=== PATIENT | male | born 1935 | race Caucasian/White ===

== ENCOUNTER 2021-08-16 20:44 | Inpatient (IN) | payer OTHER, SELFPAY ==
[~2021-08-16] VITALS: Ht 182.9 cm; Wt 81.6 kg
[2021-08-16 20:44] VITALS: BP_SYST 129
--- NOTE | 2021-08-16 20:45 | NUR ---
Placed in room 6 . Placed on cafeteria monitor, blood pressure machine and pulse oximeter. To gown for exam. Side rails up.
--- NOTE | 2021-08-16 20:46 | NUR ---
Dr. Camp at bedside for MSE.
--- NOTE | 2021-08-16 20:50 | NUR ---
# 20 gauge angiocath placed to LAC BY EMS. Use of asceptic technique. Opsite placed over site. Blood return noted. Blood for lab drawn from site. Flushed with 10 cc of normal saline. No evidence of infiltration noted. Patient tolerated well.
--- NOTE | 2021-08-16 20:57 | NUR ---
PT BIB ALS FROM [facility] C/O ALOC AND LOW SPO2 82% RA. PT A/O X1 AND HAS A HX OF DEMENTIA. PT ARRIVED TO ER WITH NRB AND SPO2 97%. PT IS 89%-90% ON RA IN ER. NO INCREASED WOB NOTED, NO SOB, NO DIAPHORESIS NOTED, NO CP.
--- NOTE | 2021-08-16 21:23 | NUR ---
EKG performed at BS by BEATRIZ LARRY. Physician given copy of EKG for review.
[2021-08-16 21:35] LABS: BASOPHILS # (AUTO) 0.1 K/uL (0.0-0.2); BASOPHILS % (AUTO) 0.8 % (0.0-2.0); EOSINOPHILS # (AUTO) 0.1 K/uL (0.0-0.4); EOSINOPHILS % (AUTO) 1.3 % (0.0-4.0); HEMATOCRIT 42.6 % (36-54); HEMOGLOBIN 14.1 g/dL (14.0-18.0); LYMPHOCYTES # (AUTO) 1.7 K/uL (1.0-5.5); LYMPHOCYTES % (AUTO) 22.4 % (20.5-51.5); MEAN CORPUSCULAR HEMOGLOBIN 32 pg (27-31); MEAN CORPUSCULAR HGB CONC 33 % (32-36); MEAN CORPUSCULAR VOLUME 98 fL (79.0-98.0); MONOCYTES # (AUTO) 0.7 K/uL (0.0-1.0); MONOCYTES % (AUTO) 9.5 % (1.7-9.3); PLATELET COUNT (AUTO) 248 K/uL (130-430); RED BLOOD CELL COUNT(AUTO) 4.35 MIL/uL (4.2-6.2); RED CELL DISTRIBUTION WIDTH 13.6 % (9.0-15.0); WHITE BLOOD COUNT (AUTO) 7.5 K/uL (4.8-10.8)
[2021-08-16] MEDS ORDERED: FINA1TAB17 PO (21:52)
[2021-08-16] MEDS ORDERED: ROSU10TA2 PO (21:52)
[2021-08-16] MEDS ORDERED: OMEG1CAP75 PO (21:52)
[2021-08-16] MEDS ORDERED: MELA10CA PO (21:52)
[2021-08-16] MEDS ORDERED: ACET1TAB23 PO (21:52)
[2021-08-16] MEDS ORDERED: KETO200T59 TP (21:52)
[2021-08-16] MEDS ORDERED: ACET-73 PO (21:52)
[2021-08-16] MEDS ORDERED: METO25TA3 PO (21:52)
[2021-08-16] MEDS ORDERED: MULT-1198 PO (21:52)
[2021-08-16] MEDS ORDERED: CLOP75TA32 PO (21:52)
[2021-08-16] MEDS ORDERED: NITR0.4T47 SL (21:52)
[2021-08-16] MEDS ORDERED: CHOL400T12 PO (21:52)
--- NOTE | 2021-08-16 21:52 | NUR ---
Medication reconciliation completed with information provided by FACILITY MED LIST. Any prior medication reconciliation on file was reviewed and corrected.
--- NOTE | 2021-08-16 21:52 | NUR ---
Patient's code status is DNR- COMFORT FOCUSED paperwork completed and placed in chart.
[2021-08-16 21:55] LABS: ANION GAP 6 (5-15); CALCIUM 9.4 mg/dL (8.4-11.0); CHLORIDE 106 mmol/L (98-107); CREATININE 1.24 mg/dL (0.55-1.30); GLUCOSE 106 mg/dL (70-99); POTASSIUM 4.1 mmol/L (3.5-5.1); SODIUM SERUM 143 mmol/L (136-145); UREA NITROGEN, BLOOD 21 mg/dL (8-21)
[2021-08-16 21:59] LABS: C-REACTIVE PROTEIN QUANT < 0.2 mg/dL (0-0.5)
[2021-08-16 22:00] LABS: ALANINE AMINOTRANSFERASE 40 U/L (12-78); ALBUMIN 3.8 g/dL (3.4-4.8); ASPARTATE AMINOTRANSFERASE 25 U/L (10-37); LACTATE DEHYDROGENASE 154 U/L (85-227); TOTAL BILIRUBIN 0.3 mg/dL (0.0-1.0)
[2021-08-16] MEDS: MELATONIN 5 MG TABLET PO SCH (22:00)
[2021-08-16] MEDS: AZITHROMYCIN 500 MG in NS 250 ML IV SCH (22:00)
--- NOTE | 2021-08-16 22:00 | NUR ---
PT ATTEMPTED TO GET OUT OF BED, REMOVED GOWN, PIV INTACT AND BLEEDING CONTROLLED. PT REDIRECTED BACK TO BED.
--- NOTE | 2021-08-16 22:05 | NUR ---
Dr. Ramirez at bedside
[2021-08-16] MEDS ORDERED: cefTRIAXone 1 GM in D5W 50 ML IV ONE (22:15)
[2021-08-16] MEDS ORDERED: AZITHROMYCIN 500 MG in NS 250 ML IV ONE (22:15)
[2021-08-16] MEDS ORDERED: DEXAMETHASONE SOD PHOSPHATE 4 MG/ML VIAL IVP ONE (22:15)
--- NOTE | 2021-08-16 22:22 | NUR ---
# 20 gauge angiocath placed to RFA. Use of asceptic technique. Opsite placed over site. Blood return noted. Flushed with 10 cc of normal saline. No evidence of infiltration noted. Patient tolerated well.
[2021-08-16] MEDS ORDERED: AZITHROMYCIN 500 MG/VIAL (ZITHROMAX) IV ONE (22:29)
[2021-08-16] MEDS ORDERED: cefTRIAXone 1 GM VIAL ONE (22:31)
[2021-08-16 22:36] LABS: PROTHROMBIN TIME 10.3 SECS (9.5-12.5)
--- NOTE | 2021-08-16 22:56 | NUR ---
Pt attempted to get out of bed, removed monitoring lines, O2 mask. Redirected back to bed.
[2021-08-16] MEDS ORDERED: LORazepam 2 MG/ML VIAL IVP ONE (23:15)
[2021-08-16] MEDS ORDERED: LORazepam 2 MG/ML VIAL ONE (23:18)
[2021-08-17] MEDS ORDERED: IOHEXOL 350 mgI/mL, 150 ML INFUS..BTL IV ONE (00:01)
--- NOTE | 2021-08-17 00:13 | NUR ---
Pt SARAH to CT with tech and EMT
[2021-08-17] MEDS ORDERED: HALOPERIDOL LACTATE 5 MG/ML VIAL IM ONE (00:30)
--- NOTE | 2021-08-17 00:30 | NUR ---
Per carpet cleaning technician, pt continues to try to get out of bed and off the CT machine. Pt continues to try to remove oxygen mask and equipment.
--- NOTE | 2021-08-17 00:50 | NUR ---
Pt back from CT
--- NOTE | 2021-08-17 01:16 | NUR ---
Pt attempting to get out of bed again and remove lines/equipment. Pt in bilateral wrist restraints and redirected.
--- NOTE | 2021-08-17 01:19 | NUR ---
Per Dr. Ramirez- continue to wait for patient to urinate. No straight cath needed at this time.
--- NOTE | 2021-08-17 02:10 | NUR ---
Patient will be admitted to care of DR. GRAVES. Admitted to TELEMTRY unit. Will go to room 123B. Belongings list completed. Complete and up to date summary report printed. SBAR report to be given at bedside with opportunity for questions.
[2021-08-17] MEDS: D5NS 1,000 ML IV SCH ×3 (02:15→18:17)
[2021-08-17] MEDS ORDERED: LORazepam 2 MG/ML VIAL ONE (02:42)
[2021-08-17] MEDS ORDERED: LORazepam 2 MG/ML VIAL IVP ONE (03:00)
[2021-08-17 03:15] LABS: BILIRUBIN,URINE NEGATIVE (NEGATIVE); BLOOD, URINE NEGATIVE (NEGATIVE); CLARITY/URINE CLEAR (CLEAR); COLOR,URINE YELLOW (YELLOW); GLUCOSE,URINE NEGATIVE (NEGATIVE); KETONES,URINE NEGATIVE (NEGATIVE); LEUKOCYTE ESTERASE ,URINE NEGATIVE (NEGATIVE); NITRITE, URINE NEGATIVE (NEGATIVE); PROTEIN URINE NEGATIVE (NEGATIVE); UROBILINOGEN,URINE 0.2 (0.2-1.0)
--- NOTE | 2021-08-17 04:30 | NUR ---
Transfer to [facility] via ACLS protocol. Licensed nurse present. IV present no signs or symptoms of infiltration.
--- NOTE | 2021-08-17 04:55 | NUR ---
ADMISSION NOTE Received patient from ER via gurney. Patient admitted with diagnosis of resp failure. Patient is confused, lethargic, arousable via sternal rub, A/Ox0. Pt on restraints d/t safety precautions. Placed on 2L nc, sats 94-98%. IVFs intitiated, PIV dressing c/d/i. Airborne isolation precautions initiated for r/o COVID. Personal belongings checked and Belongings List documented. Call light within reach. Safety precautions initiated. JUAN SZYMANSKI.
[2021-08-17 05:31] VITALS: BP_SYST 127
[2021-08-17] MEDS: LevALBUTEROL HCL 1.25 MG/0.5 ML *CONC.* VIAL.NEB (XOPENEX CONC.) INH SCH ×3 (07:00→20:11)
[2021-08-17 08:00] VITALS: BP_SYST 156
--- NOTE | 2021-08-17 08:00 | NUR ---
Received pt from night nurse, pt has bilateral wrist restrain. pt confused, unable to answer any questions, unable to verbalize his name.
--- NOTE | 2021-08-17 08:54 | NUR ---
PT ABLE TO GET OFF HIS BILAT WRIST RESTRAINT AND GET OUT OF BED, PT IS VERY CONFUSED, UNABLE TO ANSWER QUESTIONS. PT SEEN AMBULATING IN THE ROOM. ASSISTED PT TO CHAIR. Addendum: 08/17/21 at 1231 by Walt Nolan RN MD ALSO PULLED OUT HIS IV ACCESS.
[2021-08-17 11:27] VITALS: BP_SYST 150
--- NOTE | 2021-08-17 11:50 | NUR ---
dr campoverde was here and seen pt.
--- NOTE | 2021-08-17 12:07 | NUR ---
dr tamayo ordered to atilio pagan.
--- NOTE | 2021-08-17 12:29 | NUR ---
DR GRAVES WAS HERE, SEEN PATIENT TRYING TO GET OUT OF THE BED AND PT TOOK OFF HIS OXYGEN. MD ORDERED TO PLACE BACK PT ON RESTRAINT.
[2021-08-17] MEDS ORDERED: ACETAMINOPHEN/CODEINE 300 MG-30 MG TABLET PO PRN (12:30)
[2021-08-17] MEDS ORDERED: NALOXONE HCL 0.4 MG/ML AMP (NARCAN) IVP PRN (12:30)
[2021-08-17] MEDS ORDERED: NITROGLYCERIN 0.4 MG TAB.SUBL SL PRN (12:30)
[2021-08-17] MEDS ORDERED: ROSUVASTATIN CALCIUM 5 MG/TAB (CRESTOR) PO SCH (12:30)
[2021-08-17] MEDS ORDERED: ATORVASTATIN 20 MG TABLET PO ONE (13:00)
[2021-08-17] MEDS ORDERED: CLOPIDOGREL BISULFATE 75 MG TABLET PO ONE (13:15)
[2021-08-17] MEDS ORDERED: OLANZapine 2.5 MG TABLET PO ONE (13:15)
--- NOTE | 2021-08-17 14:20 | NUR ---
seen pt trying to get out of bed again, pt is setting on the eob pulling on his restraint. pt assisted back to lay on bed.
[2021-08-17 15:36] VITALS: BP_SYST 124
--- NOTE | 2021-08-17 18:33 | NUR ---
PT CONTINUED TO BE ON BILAT WRIST RESTRAINT ORDERED BY DR GRAVES. PT DAUGHTER MAKENZIE CALLED AND WAS UPDATED WITH PT'S CONDITION WELL [facility] DISABILITY PROGRAM NAVIGATOR INDY HALL. PAPER SHEETER ZENY AWARE OF ORDER FOR SITTER BUT DUE TO COVID-19 PRECAUTION, UNABLE TO PROVIDE SITTER. AWAITING FOR COVID PCR TEST RESULT.
[2021-08-17 20:00] VITALS: BP_SYST 111
[2021-08-17] MEDS ORDERED: cefTRIAXone 1 GM VIAL ONE (21:02)
[2021-08-17] MEDS ORDERED: AZITHROMYCIN 500 MG/VIAL (ZITHROMAX) IV ONE (21:02)
[2021-08-17] MEDS: cefTRIAXone 1 GM in D5W 50 ML IV SCH (22:00)
[2021-08-18] VITALS: BP_SYST 106
[2021-08-18] MEDS: LevALBUTEROL HCL 1.25 MG/0.5 ML *CONC.* VIAL.NEB (XOPENEX CONC.) INH SCH ×4 (01:40→19:00)
--- NOTE | 2021-08-18 05:51 | NUR ---
Outcome Summary A/Ox1, confused, soft restraints in place for pt safety. VSS. Afebrile. Denies pain or discomfort. No c/o cp/sob. Sats >95% on 4L nc. SR with RBBB on tele. Poor appetite, PO intake encouraged. Incontinent, condom catheter in place. Turned q2 for comfort. IVF and IV abx continued, PIV dressing c/d/i. Isolation precautions maintained. POC d/w daughter Laurel. All needs met, safety and comfort measures maintained, call light within reach. NR, RN.
--- NOTE | 2021-08-18 07:01 | NUR ---
PAGED PAGED DR.KADHIUM MOROCHO AT [phone] SPOKE WITH ,
--- NOTE | 2021-08-18 07:32 | NUR ---
INFORMED US ALBERTO THAT THE PATIENT'S 02 SATURATION WAS AT 77% HE WILL INFORM JUAN LANDRUM
[2021-08-18 08:00] VITALS: BP_SYST 128
--- NOTE | 2021-08-18 08:34 | NUR ---
INFORMED RN SALEEMENIS THAT THE PATIENT'S 02 SATURATION IS STILL NOT SHOWING ON THE MONITOR
--- NOTE | 2021-08-18 10:03 | NUR ---
Nutrition Update Tremaine Scale 16 noted. Pt admitted for pneumonia. Diet: mechanical soft BMI: 24.4 kg/m2 RD to follow per nutrition care standards.
[2021-08-18] MEDS: CLOPIDOGREL BISULFATE 75 MG TABLET PO SCH (10:31)
[2021-08-18] MEDS: OLANZapine 2.5 MG TABLET PO SCH (10:31)
[2021-08-18] MEDS: MULTIVITS,CA,MINERALS/IRON/FA 1 TABLET PO SCH (10:31)
[2021-08-18] MEDS: ATORVASTATIN 20 MG TABLET PO SCH (10:31)
[2021-08-18] MEDS: FINASTERIDE 5 MG TABLET (PROSCAR) PO SCH (10:32)
[2021-08-18] MEDS: CHOLECALCIFEROL (VITAMIN D-3) 400 UNIT TABLET PO SCH (10:32)
[2021-08-18] MEDS: OMEGA-3/DHA/EPA/FISH OIL 1 GM CAPSULE PO SCH (10:32)
[2021-08-18] MEDS: METOPROLOL SUCCINATE 25 MG TAB.SR.24H (TOPROL XL) PO SCH (10:38)
[2021-08-18 12:00] VITALS: BP_SYST 134
[2021-08-18] MEDS ORDERED: TAMSULOSIN HCL 0.4 MG CAP PO ONE (15:00)
--- NOTE | 2021-08-18 17:00 | NUR ---
pt has been very confused noncompliance to care has pulled out three iv access even with bilateral restraints on this pt have literally ripped off his wrists restraints bilaterally and was found out of his bed with no clothes on in a state of confusion and the bed alarm sounding out it took two people to redirect the pt back in bed safely and new restraints placed on him and constantly being monitor by this senior writer. nurse supervisor machining was made aware of that and was asked if pt can be a 1:1 with a sitter because of his safety and the physician was also called.
--- NOTE | 2021-08-18 17:59 | NUR ---
INFORMED US ALBERTO THAT THE PATIENT IS OFF THE LEADS ALSO 02 SATURATION HAS NOT BEEN SHOWING
[2021-08-18 18:11] VITALS: BP_SYST 145
[2021-08-18] MEDS: D5NS 1,000 ML IV SCH (18:15)
--- NOTE | 2021-08-18 18:37 | NUR ---
pt's daughter called demanding she wants to come in and sit with her father but due to the pending of his covid-19 test which is still pending did request for dr Salguero to call her at once. This script writer did call the doctor and gave him her personal number [phone]
[2021-08-18 20:00] VITALS: BP_SYST 127
[2021-08-18] MEDS: AZITHROMYCIN 500 MG in NS 250 ML IV SCH (21:00)
[2021-08-18] MEDS: cefTRIAXone 1 GM in D5W 50 ML IV SCH (21:00)
[2021-08-18] MEDS ORDERED: AZITHROMYCIN 500 MG/VIAL (ZITHROMAX) IV ONE (21:24)
[2021-08-18] MEDS ORDERED: cefTRIAXone 1 GM VIAL ONE (21:24)
[2021-08-18] MEDS: MELATONIN 5 MG TABLET PO SCH (23:19)
[2021-08-19] VITALS: BP_SYST 136
--- NOTE | 2021-08-19 06:02 | NUR ---
A/Ox1, bilateral wrist restraints in place d/t continuously pulling lines. Daughter granted access per MD to sit bedside amid pending PCR results d/t pt's mental status. VSS. Afebrile. Denies pain or discomfort. Sats 95% on 5L nc. SR with BBB on tele. Tolerating mechanical soft diet. Incontinent, voiding adequately. IVFs and IV abx continued, PIV dressing c/d/i. All needs met, safety and comfort measures maintained, call light within reach. NR, RN.
[2021-08-19 06:54] LABS: ANION GAP 6 (5-15); CALCIUM 8.6 mg/dL (8.4-11.0); CHLORIDE 107 mmol/L (98-107); CREATININE 0.81 mg/dL (0.55-1.30); GLUCOSE 86 mg/dL (70-99); POTASSIUM 3.5 mmol/L (3.5-5.1); SODIUM SERUM 141 mmol/L (136-145); UREA NITROGEN, BLOOD 13 mg/dL (8-21)
[2021-08-19] MEDS: LevALBUTEROL HCL 1.25 MG/0.5 ML *CONC.* VIAL.NEB (XOPENEX CONC.) INH SCH ×2 (07:00→13:00)
[2021-08-19 07:26] LABS: BASOPHILS % (AUTO) 0.4 % (0.0-2.0); EOSINOPHILS # (AUTO) 0.1 K/uL (0.0-0.4); EOSINOPHILS % (AUTO) 1.5 % (0.0-4.0); HEMATOCRIT 45.1 % (36-54); LYMPHOCYTES # (AUTO) 2.5 K/uL (1.0-5.5); LYMPHOCYTES % (AUTO) 30.5 % (20.5-51.5); MEAN CORPUSCULAR HEMOGLOBIN 32 pg (27-31); MEAN CORPUSCULAR HGB CONC 33 % (32-36); MEAN CORPUSCULAR VOLUME 97 fL (79.0-98.0); MONOCYTES # (AUTO) 0.7 K/uL (0.0-1.0); MONOCYTES % (AUTO) 8.5 % (1.7-9.3); NEUTROPHILS # (AUTO) 4.9 K/uL (1.8-7.7); NEUTROPHILS % (AUTO) 59.1 % (40.0-70.0); PLATELET COUNT (AUTO) 232 K/uL (130-430); RED BLOOD CELL COUNT(AUTO) 4.65 MIL/uL (4.2-6.2); RED CELL DISTRIBUTION WIDTH 13.4 % (9.0-15.0); WHITE BLOOD COUNT (AUTO) 8.3 K/uL (4.8-10.8)
[2021-08-19] MEDS: D5NS 1,000 ML IV SCH ×2 (07:35→15:36)
--- NOTE | 2021-08-19 07:50 | NUR ---
Opening note Patient is resting in bed A&O x2, no complaint of pain or discomfort, restless and woants to be taken off of restraints. no signs or symptoms of respiratory distress. Daughter is at bedside, daughter was educated on risk of being in PUI room, verbalized understanding and is wearing proper PPE. Patient is on restraints. IV is in place and patent. Educated patients agagaubreeer on plan of care, patient verbalized understanding. Price is in lowest position, call light within reach, fall and aspiration precautions are in place. Will continue to monitor Addendum: 08/19/21 at 1230 by Kamala Gomez RN droplet precautions are in place.
[2021-08-19 08:00] VITALS: BP_SYST 128
[2021-08-19] MEDS: OLANZapine 2.5 MG TABLET PO SCH (09:02)
[2021-08-19] MEDS: ATORVASTATIN 20 MG TABLET PO SCH (09:02)
[2021-08-19] MEDS: CHOLECALCIFEROL (VITAMIN D-3) 400 UNIT TABLET PO SCH (09:02)
[2021-08-19] MEDS: METOPROLOL SUCCINATE 25 MG TAB.SR.24H (TOPROL XL) PO SCH (09:05)
[2021-08-19] MEDS: OMEGA-3/DHA/EPA/FISH OIL 1 GM CAPSULE PO SCH (09:06)
[2021-08-19] MEDS: FINASTERIDE 5 MG TABLET (PROSCAR) PO SCH (09:06)
[2021-08-19] MEDS: TAMSULOSIN HCL 0.4 MG CAP PO SCH (09:06)
[2021-08-19] MEDS: CLOPIDOGREL BISULFATE 75 MG TABLET PO SCH (09:06)
[2021-08-19] MEDS: MULTIVITS,CA,MINERALS/IRON/FA 1 TABLET PO SCH (09:06)
--- NOTE | 2021-08-19 11:30 | NUR ---
RN note Patient is in bed, restless. Attempted to calm patient and was successful. Patient does not complain of pain is in stable condition. Will continue to monitor.
[2021-08-19 16:03] VITALS: BP_SYST 112
--- NOTE | 2021-08-19 16:50 | NUR ---
RN note Daughter is back in the room with patient, wearing correct PPE. Patient is significantly calmer with daughter at bedside.
--- NOTE | 2021-08-19 18:41 | NUR ---
Closing note Patient is resting in bed A&O x2, no complaint of pain or discomfort. No signs or symptoms of respiratory distress. Daughter is at bedside. Patient is on restraints. IV is in place and patent. All needs were met. Bed is in lowest position, call light within reach of the daughter , droplet, fall and aspiration precautions are in place. Will endorse report to plant operator/shift supervisor.
[2021-08-19 19:00] VITALS: BP_SYST 114
--- NOTE | 2021-08-19 19:15 | NUR ---
change of shift.pt.presents isolation status;droplet;covid19;pui status.[email or web address] assist w adl's.dtr presents order per to [email or web address] iv access intact.iv fluids infusing.pt.receiving os therapy via nasal cannuale rate:2l/min:o2-sat5=93%.restraints wrist bilateral in place.skin/circulation wnl.call light/telephone placed w/in access of the pt.
[2021-08-19 20:00] VITALS: BP_SYST 114
--- NOTE | 2021-08-19 20:00 | NUR ---
pt.assessed.v/s assessed values wnl.o2-sat%=93%.iv access intact iv fluids infusing.pt.assessed for cleanliness.pt.repositioned. no c/o pain,nausea.call light/telephone placed w/in access of the pt.restraints wrists restraints bilateral in place skin/circulation wnl.
--- NOTE | 2021-08-19 21:00 | NUR ---
2100pmedication melatonin administered.medication crushed mixture apple sauce.pt.capable to ingest the po medication w/out difficulty.
[2021-08-19] MEDS: MELATONIN 5 MG TABLET PO SCH (21:06)
--- NOTE | 2021-08-19 22:00 | NUR ---
pt.assessed.02-fri%=93%.iv access intact iv fluids infusing.pt.assessed for cleanliness.pt.repositioned.no c/o pain,nausea. restraints wrist bilateral in place.skin/circulation wnl.call light/telephone placed w/in access of the pt.
[2021-08-19] MEDS: cefTRIAXone 1 GM in D5W 50 ML IV SCH (22:03)
[2021-08-19] MEDS: AZITHROMYCIN 500 MG in NS 250 ML IV SCH (22:03)
[2021-08-20] VITALS: BP_SYST 110
--- NOTE | 2021-08-20 | NUR ---
pt.assessed.v/s assessed values wnl.o2=sat%=93%.iv access intact iv fluids infusing.dtr assisted cleaning pt.repositioning. no c/o pain,nausea.call light/telphone place w/in access of the pt. Addendum: 08/20/21 at 0113 by Rex Pérez RN restraints wrist bilateral in place.skin/circulation wnl.
--- NOTE | 2021-08-20 02:00 | NUR ---
pt.assessed.pt.presents quiescent affect.iv access intact iv fluids infusing.restraints wrsit bilateral in place skin/circulation wnl.pt.assessed for cleanliness pt.repositioned.per flacc pain mgx pt.absent facial grimaces/body posturing.o2-sat%=93%. call light/telephone placed w/in access of the pt.
--- NOTE | 2021-08-20 04:00 | NUR ---
pt.assessed.pt.presents quiescent affect somnolent.per flacc pain mgx pt.absent facial grimaces/body posturing.iv access intact iv fluids infusing.pt.assessed for cleanliness.pt.repositioned.02-fri%=93%.call light/telephone w/in access of the pt.restraints wrist bilateral in place.skin/circulation wnl.
[2021-08-20] MEDS: D5NS 1,000 ML IV SCH ×2 (05:58→23:44)
--- NOTE | 2021-08-20 06:16 | NUR ---
pt.assessed.restraints wrist bilateral in place.skin/circulation wnl.iv access intact iv fluids infusing.pt.assessed for cleanliness. pt.repositioned.per flacc pain mgx pt.absent facial grimaces/body posturing.02-sat%=93%call light/telephone placed w/in access of the pt.
[2021-08-20] MEDS: LevALBUTEROL HCL 1.25 MG/0.5 ML *CONC.* VIAL.NEB (XOPENEX CONC.) INH SCH ×2 (07:23→14:38)
[2021-08-20] MEDS: CHOLECALCIFEROL (VITAMIN D-3) 400 UNIT TABLET PO SCH (09:00)
[2021-08-20] MEDS: ATORVASTATIN 20 MG TABLET PO SCH (09:22)
[2021-08-20] MEDS: OMEGA-3/DHA/EPA/FISH OIL 1 GM CAPSULE PO SCH (09:22)
[2021-08-20] MEDS: TAMSULOSIN HCL 0.4 MG CAP PO SCH (09:22)
[2021-08-20] MEDS: MULTIVITS,CA,MINERALS/IRON/FA 1 TABLET PO SCH (09:23)
[2021-08-20] MEDS: FINASTERIDE 5 MG TABLET (PROSCAR) PO SCH (09:23)
[2021-08-20] MEDS: OLANZapine 2.5 MG TABLET PO SCH (09:23)
[2021-08-20] MEDS: METOPROLOL SUCCINATE 25 MG TAB.SR.24H (TOPROL XL) PO SCH (09:25)
[2021-08-20] MEDS: CLOPIDOGREL BISULFATE 75 MG TABLET PO SCH (09:25)
[2021-08-20 09:40] VITALS: BP_SYST 113
--- NOTE | 2021-08-20 16:04 | NUR ---
Patient can have O2 at the [facility]. O2 form needs to be signed by and then I will order the O2 for home. The facility will also need Rx for PO antibiotics-please fax to [phone]
[2021-08-20 16:36] VITALS: BP_SYST 126
--- NOTE | 2021-08-20 19:30 | NUR ---
Opening note Patient is resting in bed A&O x1, no report of pain or discomfort,patient is sleeping at this time. No signs or symptoms of respiratory distress. Daughter is at bedside, daughter was educated on risk of being in PUI room, verbalized understanding and is wearing proper PPE. No IV access at this time, to place IV. Educated patient's daughter on plan of care, patient's daughter verbalized understanding. Bed is in lowest position, call light within reach, fall and aspiration precautions are in place. Isolation precautions maintained. Will continue to monitor.
[2021-08-20 20:00] VITALS: BP_SYST 99
[2021-08-20] MEDS: DONEPEZIL HCL 5 MG TABLET (ARICEPT) PO SCH (20:14)
[2021-08-20] MEDS: MELATONIN 5 MG TABLET PO SCH (20:14)
--- NOTE | 2021-08-20 21:16 | NUR ---
RESTRAINTS DR. GRAVES ORDERED BILATERAL SOFT WRIST RESTRAINTS. NO S/S OF IMPAIRED CIRCULATION. PT'S DAUGHTER IS AT BEDSIDE. WILL MONITOR.
--- NOTE | 2021-08-20 21:30 | NUR ---
IV PLACEMENT: # 22 gauge angiocath placed to right hand. Use of asceptic technique. Opsite placed over site. Blood return noted. Flushed with 10 cc of normal saline. No evidence of infiltration noted.
[2021-08-20] MEDS: cefTRIAXone 1 GM in D5W 50 ML IV SCH (21:53)
[2021-08-20] MEDS: AZITHROMYCIN 500 MG in NS 250 ML IV SCH (23:43)
--- NOTE | 2021-08-21 | NUR ---
RN ROUNDS: PT RESTING IN BED, NO S/S OF ACUTE DISTRESS. VSS. PT'S DAUGHTER REMAINS AT BEDSIDE. ISOLATION PRECAUTIONS MAINTAINED. WILL MONITOR.
[2021-08-21 00:28] VITALS: BP_SYST 110
--- NOTE | 2021-08-21 03:45 | NUR ---
RN NOTE: PATIENT NOTED TO HAVE RIPPED OFF RESTRAINTS, GOWN, IV AND TELEMETRY LEADS. PT CLEANED AND REPOSITIONED. RESTRAINTS REAPPLIED ORDERED. NO S/S OF IMPAIRED CIRCULATION NOTED. TELE LEADS REAPPLIED. WILL MONITOR.
--- NOTE | 2021-08-21 06:43 | NUR ---
CLOSING NOTE Patient is resting in bed A&O x1, no report of pain or discomfort, patient is awake and restless. Bilateral soft wrist restraints are in place, no s/s of impaired circulation noted. No signs or symptoms of respiratory distress. No IV access at this time, will endorse to day shift RN. Bed is in lowest position, call light within reach, fall and aspiration precautions are in place. Isolation precautions maintained. Will continue to monitor until patient care is endorsed to day shift RN.
[2021-08-21 07:01] LABS: BASOPHILS % (AUTO) 0.3 % (0.0-2.0); EOSINOPHILS # (AUTO) 0.2 K/uL (0.0-0.4); EOSINOPHILS % (AUTO) 2.1 % (0.0-4.0); HEMATOCRIT 43.5 % (36-54); HEMOGLOBIN 14.4 g/dL (14.0-18.0); LYMPHOCYTES # (AUTO) 1.9 K/uL (1.0-5.5); LYMPHOCYTES % (AUTO) 25.2 % (20.5-51.5); MEAN CORPUSCULAR HEMOGLOBIN 32 pg (27-31); MEAN CORPUSCULAR HGB CONC 33 % (32-36); MEAN CORPUSCULAR VOLUME 97 fL (79.0-98.0); MONOCYTES # (AUTO) 0.6 K/uL (0.0-1.0); MONOCYTES % (AUTO) 7.9 % (1.7-9.3); NEUTROPHILS # (AUTO) 4.8 K/uL (1.8-7.7); NEUTROPHILS % (AUTO) 64.5 % (40.0-70.0); PLATELET COUNT (AUTO) 223 K/uL (130-430); RED BLOOD CELL COUNT(AUTO) 4.48 MIL/uL (4.2-6.2); RED CELL DISTRIBUTION WIDTH 13.2 % (9.0-15.0); WHITE BLOOD COUNT (AUTO) 7.4 K/uL (4.8-10.8)
[2021-08-21 07:10] LABS: ANION GAP 4 (5-15); CALCIUM 8.6 mg/dL (8.4-11.0); CHLORIDE 107 mmol/L (98-107); CREATININE 0.86 mg/dL (0.55-1.30); GLUCOSE 104 mg/dL (70-99); SODIUM SERUM 140 mmol/L (136-145); UREA NITROGEN, BLOOD 15 mg/dL (8-21)
--- NOTE | 2021-08-21 08:01 | NUR ---
Paged Dr. Salgueor for negative covid result
[2021-08-21 08:35] VITALS: BP_SYST 120
[2021-08-21] MEDS: LevALBUTEROL HCL 1.25 MG/0.5 ML *CONC.* VIAL.NEB (XOPENEX CONC.) INH SCH ×2 (08:43→14:03)
[2021-08-21] MEDS: MULTIVITS,CA,MINERALS/IRON/FA 1 TABLET PO SCH (10:00)
[2021-08-21] MEDS: FINASTERIDE 5 MG TABLET (PROSCAR) PO SCH (10:00)
[2021-08-21] MEDS: ATORVASTATIN 20 MG TABLET PO SCH (10:00)
[2021-08-21] MEDS: TAMSULOSIN HCL 0.4 MG CAP PO SCH (10:00)
[2021-08-21] MEDS: CLOPIDOGREL BISULFATE 75 MG TABLET PO SCH (10:00)
[2021-08-21] MEDS: OMEGA-3/DHA/EPA/FISH OIL 1 GM CAPSULE PO SCH (10:00)
[2021-08-21] MEDS: OLANZapine 2.5 MG TABLET PO SCH (10:02)
[2021-08-21] MEDS: CHOLECALCIFEROL (VITAMIN D-3) 400 UNIT TABLET PO SCH (10:02)
[2021-08-21] MEDS: METOPROLOL SUCCINATE 25 MG TAB.SR.24H (TOPROL XL) PO SCH (10:02)
[2021-08-21] MEDS: D5NS 1,000 ML IV SCH (12:55)
[2021-08-21 13:23] VITALS: BP_SYST 118
[2021-08-21] MEDS ORDERED: DONE10TA44 PO (14:42)
[2021-08-21] MEDS ORDERED: LEVO750T45 PO (14:42)
[2021-08-21] MEDS ORDERED: IPRA4AER INH (14:43)
--- NOTE | 2021-08-21 15:26 | NUR ---
[facility] [phone]-will deliver O2 to [facility] this evening or in the AM. Rx faxed to Su at [facility]-phone [phone]/fax [phone]
[2021-08-21 16:00] VITALS: BP_SYST 118
[2021-08-21 19:00] VITALS: BP_SYST 126
[2021-08-21 20:00] VITALS: BP_SYST 126
[2021-08-21] MEDS: DONEPEZIL HCL 5 MG TABLET (ARICEPT) PO SCH (20:45)
[2021-08-21] MEDS: MELATONIN 5 MG TABLET PO SCH (20:46)
[2021-08-21] MEDS: cefTRIAXone 1 GM in D5W 50 ML IV SCH (20:49)
[2021-08-21] MEDS: AZITHROMYCIN 500 MG in NS 250 ML IV SCH (22:11)
--- NOTE | 2021-08-21 23:00 | NUR ---
RN received patient from am shift nurse with 0 S/S OF DISTRESS no complaints of pain. RN assessed the patient from any change of status. RN assessed patient body and completed a head to toe assessment at bed side. [place] PIV was flushed and line was patient and infusing with no complaints of discomfort at that time. IV abt infusions were hung as prescribed. During the end of the infusion patient complained of pain and discomfort at infusion site RN assessed the area and noted that there was infiltration at the site. Daughter was at patient bedside and patient was distress from the discomfort. RN offered to start a new line and continue the infusion elsewhere but daughter instructed nurse to DC the IV and not insert a new line. Education was provided that it was important to start a new line not only for hydration and medication but incase of an emergency code. Patient daughter verbalized understanding but refused to have a new PIV placed at the time. RN re,monster the line and applied ICE pack to the area to eliminate the discomfort. Patient is currently resting with no distress noted.
[2021-08-22] MEDS: LevALBUTEROL HCL 1.25 MG/0.5 ML *CONC.* VIAL.NEB (XOPENEX CONC.) INH SCH ×4 (01:00→14:00)
[2021-08-22] MEDS: D5NS 1,000 ML IV SCH (02:15)
[2021-08-22 02:17] VITALS: BP_SYST 119
[2021-08-22 08:00] VITALS: BP_SYST 101
[2021-08-22] MEDS: MULTIVITS,CA,MINERALS/IRON/FA 1 TABLET PO SCH (08:38)
[2021-08-22] MEDS: OLANZapine 2.5 MG TABLET PO SCH (08:38)
[2021-08-22] MEDS: OMEGA-3/DHA/EPA/FISH OIL 1 GM CAPSULE PO SCH (08:38)
[2021-08-22] MEDS: TAMSULOSIN HCL 0.4 MG CAP PO SCH (08:38)
[2021-08-22] MEDS: CHOLECALCIFEROL (VITAMIN D-3) 400 UNIT TABLET PO SCH (08:39)
[2021-08-22] MEDS: ATORVASTATIN 20 MG TABLET PO SCH (08:39)
[2021-08-22] MEDS: CLOPIDOGREL BISULFATE 75 MG TABLET PO SCH (08:39)
[2021-08-22] MEDS: FINASTERIDE 5 MG TABLET (PROSCAR) PO SCH (08:39)
[2021-08-22] MEDS: METOPROLOL SUCCINATE 25 MG TAB.SR.24H (TOPROL XL) PO SCH (09:00)
--- NOTE | 2021-08-22 09:54 | NUR ---
Opening note Patient is resting in bed A&Ox1 able to reorient however is very very forgetful , no complaint of pain or discomfort, no signs or symptoms of respiratory distress. No IV site at this time as the daughter did not want one pace during overnight cashier, will wait for her to visit to reeducate and ask to place one. , will place one today. Unable to effectively educate patient on plan of care due to cognitive status. Restraints are in place. Bed is in lowest position, fall and aspiration precautions are in place. Will continue to monitor.
--- NOTE | 2021-08-22 09:59 | NUR ---
RN note Reassessed patients blood pressure, 107/65. Will hold BP medication at this time, Will inform MD
--- NOTE | 2021-08-22 11:20 | NUR ---
RN note Spoke with patients daughter, does not want another IV to placed because her father is going home. Provided education regarding importance IV, daughter does not want IV to be placed.
[2021-08-22 12:48] VITALS: BP_SYST 122
--- NOTE | 2021-08-22 13:16 | NUR ---
Dietitian Recommendations *Recommend: continue mechanical soft diet. Add Ensure Enlive BID. ONS will provide additional 700 kcal, 40gm protein daily. *Encourage PO intake q meal. Please see Nutritional Assessment for details. KIANA DANIELS
[2021-08-22 14:09] VITALS: BP_SYST 114
--- NOTE | 2021-08-22 14:35 | NUR ---
D/C Patient Patient daughter Laurel Ferrer given medication reconciliation form and D/C instructions. Exit Care provided. Patient love Barragan verbalized understanding. MD discussed with patient the results and treatment provided. Transported via wheelchair with steady gait for discharge to home. Patient in stable condition, ID band removed. All belongings sent with patient.
--- NOTE | 2021-08-23 08:07 | NUR ---
PHYSICAL THERAPY CO-SIGN The Physical Therapy Progress Notes documented by Manager Storage have been reviewed. Reviewed/Co-Signed by: Tony Arce Documentation Done by: JAYLA WARE PTA Addendum: 08/23/21 at 0810 by Tony Arce PT Amended: Links added.
--- NOTE | 2021-08-23 08:08 | NUR ---
PHYSICAL THERAPY CO-SIGN The Physical Therapy Progress Notes documented by Blood And Plasma Laboratory Assistant have been reviewed. Reviewed/Co-Signed by: Tony Arce Documentation Done by: JAYLA WARE PTA Addendum: 08/23/21 at 0810 by Tony Arce PT Amended: Links added.
== END 2021-08-22 14:35 | DRG 193 ==
LOC: SED 20:44 → STU 08-17 02:02 → SMU 08-21 15:37
PROVIDERS: ADMIT Family Medicine; ATTEND Family Medicine
DX: J18.9 Pneumonia, unspecified organism (principal); G93.41 Metabolic encephalopathy; I25.10 Atherosclerotic heart disease of native coronary artery without angina pectoris; M19.90 Unspecified osteoarthritis, unspecified site; I10 Essential (primary) hypertension; N40.0 Benign prostatic hyperplasia without lower urinary tract symptoms; J44.9 Chronic obstructive pulmonary disease, unspecified; Z20.822 Contact with and (suspected) exposure to COVID-19
CPT/HCPCS: 36415; 36600; 71045; 71275; 76376; 80048; 80053; 81003; 82550; 82728; 82803-TC; 83605; 83615; 83880; 84484; 85025; 85379; 85384; 85610-TC; 85730-TC; 86140; 87040-TC; 87081; 87086; 93005; 94640; 94760; 96365; 96367; 96372; 96375; 97110-GP; 97163-GP; 99285; G0378; J0456; J0696; J1100; J1630; J2060; J7050; J7060; J7612; Q9967; U0003

== ENCOUNTER 2021-08-24 09:11 | Emergency (ER) | payer OTHER, SELFPAY ==
[~2021-08-24] VITALS: Ht 182.9 cm; Wt 79.4 kg
[~2021-08-24 09:11] MED LIST: ACET-73 PO; ACET1TAB23 PO; CHOL400T12 PO; CLOP75TA32 PO; DONE10TA44 PO; FINA1TAB17 PO; IPRA4AER INH; KETO200T59 TP; LEVO750T45 PO; MELA10CA PO; METO25TA3 PO; MULT-1198 PO; NITR0.4T47 SL; OMEG1CAP75 PO; ROSU10TA2 PO
[2021-08-24 09:17] VITALS: BP_SYST 140
--- NOTE | 2021-08-24 09:20 | NUR ---
Patient to ER bed 5 to gown for evaluation. Side rails up. Report given to Sonia MARTINEZ.
--- NOTE | 2021-08-24 09:31 | NUR ---
DR GARCIA AT BEDSIDE FOR EXAM
--- NOTE | 2021-08-24 09:57 | NUR ---
PT BIB[facility] FROM [facility]. PT ALERT TO NAME AND BIRTHDATE ONLY. PT IN NAD. RESP EVEN AND UNLBAORED, ON RA @90%, PLACED ON 02-2L VIA NC @95%. DENIES ANY CP OR SOB,DENIES ANY ABDOMINAL PAIN, NO N/V/D. ABD SOFT, NT TO PALPATION. SKIN W/D/I, SAFETY MEASURES IN PLACE, WILL CONT TO MONITOR CLOSELY. VSS.
[2021-08-24 10:06] LABS: BASOPHILS % (AUTO) 0.7 % (0.0-2.0); EOSINOPHILS # (AUTO) 0.2 K/uL (0.0-0.4); EOSINOPHILS % (AUTO) 2.3 % (0.0-4.0); HEMATOCRIT 42.6 % (36-54); HEMOGLOBIN 14.1 g/dL (14.0-18.0); LYMPHOCYTES # (AUTO) 2.4 K/uL (1.0-5.5); LYMPHOCYTES % (AUTO) 34.7 % (20.5-51.5); MEAN CORPUSCULAR HEMOGLOBIN 32 pg (27-31); MEAN CORPUSCULAR HGB CONC 33 % (32-36); MEAN CORPUSCULAR VOLUME 97 fL (79.0-98.0); MONOCYTES # (AUTO) 0.6 K/uL (0.0-1.0); MONOCYTES % (AUTO) 8.1 % (1.7-9.3); NEUTROPHILS # (AUTO) 3.8 K/uL (1.8-7.7); NEUTROPHILS % (AUTO) 54.2 % (40.0-70.0); PLATELET COUNT (AUTO) 225 K/uL (130-430); RED CELL DISTRIBUTION WIDTH 13.4 % (9.0-15.0); WHITE BLOOD COUNT (AUTO) 6.9 K/uL (4.8-10.8)
--- NOTE | 2021-08-24 10:29 | NUR ---
DTR AT BEDSIDE, NO ACUTE CHANGES, PT RESTING COMFORTABLY IN BED.
[2021-08-24 10:40] LABS: ANION GAP 6 (5-15); CALCIUM 9.1 mg/dL (8.4-11.0); CHLORIDE 105 mmol/L (98-107); CREATININE 0.92 mg/dL (0.55-1.30); GLUCOSE 101 mg/dL (70-99); POTASSIUM 4.2 mmol/L (3.5-5.1); SODIUM SERUM 141 mmol/L (136-145); UREA NITROGEN, BLOOD 23 mg/dL (8-21)
[2021-08-24 10:46] LABS: ALANINE AMINOTRANSFERASE 38 U/L (12-78); ALBUMIN 3.4 g/dL (3.4-4.8); ASPARTATE AMINOTRANSFERASE 30 U/L (10-37); TOTAL BILIRUBIN 0.5 mg/dL (0.0-1.0)
--- NOTE | 2021-08-24 11:45 | NUR ---
DC WITH [facility], PT LEAVING TO [facility] WITH DTR VIA W/C, VSS, STABLE FOR DISCHARGE.
[2021-08-24 11:48] VITALS: BP_SYST 151
== END 2021-08-24 11:45 | disposition home or self-care (01) ==
LOC: SED 09:11
DX: J44.9 Chronic obstructive pulmonary disease, unspecified (principal); Z79.899 Other long term (current) drug therapy; Z20.822 Contact with and (suspected) exposure to COVID-19
CPT/HCPCS: 36415; 71045; 80053; 83605; 83880; 84484; 85025; 87040-TC; 93005; 99285

== ENCOUNTER 2021-09-11 19:28 | Emergency (ER) | payer OTHER, SELFPAY ==
[~2021-09-11] VITALS: Ht 177.8 cm; Wt 77.1 kg
[2021-09-11 19:35] VITALS: BP_SYST 118
[2021-09-11 21:16] LABS: BASOPHILS # (AUTO) 0.2 K/uL (0.0-0.2); BASOPHILS % (AUTO) 1.6 % (0.0-2.0); EOSINOPHILS % (AUTO) 0.2 % (0.0-4.0); HEMATOCRIT 46.8 % (36-54); HEMOGLOBIN 15.6 g/dL (14.0-18.0); LYMPHOCYTES % (AUTO) 20.8 % (20.5-51.5); MEAN CORPUSCULAR HEMOGLOBIN 32 pg (27-31); MEAN CORPUSCULAR HGB CONC 33 % (32-36); MEAN CORPUSCULAR VOLUME 96 fL (79.0-98.0); MONOCYTES # (AUTO) 0.8 K/uL (0.0-1.0); MONOCYTES % (AUTO) 8.5 % (1.7-9.3); NEUTROPHILS # (AUTO) 6.6 K/uL (1.8-7.7); NEUTROPHILS % (AUTO) 68.9 % (40.0-70.0); PLATELET COUNT (AUTO) 229 K/uL (130-430); RED BLOOD CELL COUNT(AUTO) 4.85 MIL/uL (4.2-6.2); RED CELL DISTRIBUTION WIDTH 13.3 % (9.0-15.0); WHITE BLOOD COUNT (AUTO) 9.6 K/uL (4.8-10.8)
[2021-09-11 21:20] LABS: ANION GAP 8 (5-15); CALCIUM 9.8 mg/dL (8.4-11.0); CHLORIDE 106 mmol/L (98-107); CREATININE 1.53 mg/dL (0.55-1.30); GLUCOSE 112 mg/dL (70-99); POTASSIUM 4.4 mmol/L (3.5-5.1); SODIUM SERUM 142 mmol/L (136-145); UREA NITROGEN, BLOOD 36 mg/dL (8-21)
[2021-09-11 21:29] LABS: ALANINE AMINOTRANSFERASE 27 U/L (12-78); ALBUMIN 3.7 g/dL (3.4-4.8); ASPARTATE AMINOTRANSFERASE 19 U/L (10-37); TOTAL BILIRUBIN 0.6 mg/dL (0.0-1.0)
[2021-09-11] MEDS ORDERED: CEPH500C2 PO (23:26)
[2021-09-11] MEDS ORDERED: cephALEXin 500 MG CAPSULE PO ONE (23:30)
[2021-09-11 23:32] VITALS: BP_SYST 118
== END 2021-09-11 23:32 | disposition home or self-care (01) ==
LOC: SED 19:28
DX: S09.90XA Unspecified injury of head, initial encounter (principal); F03.90 Unspecified dementia, unspecified severity, without behavioral disturbance, psychotic disturbance, mood disturbance, and anxiety; Z79.899 Other long term (current) drug therapy; W18.39XA Other fall on same level, initial encounter; Y93.89 Activity, other specified; Y92.89 Other specified places as the place of occurrence of the external cause; Y99.8 Other external cause status
CPT/HCPCS: 36415; 70450-TC; 72125-TC; 76376; 80053; 84484; 85025; 93005; 99285